=== PATIENT | female | born 1955 | race Caucasian/White ===

== ENCOUNTER 2018-12-06 19:20 | Emergency (ER) | payer MEDICARE ==
[~2018-12-06] VITALS: Ht 170.2 cm; Wt 68.2 kg
[2018-12-06 19:34] VITALS: TEMP 98
[2018-12-06] MEDS ORDERED: NORCO 325 MG-51 TAB PO (22:35)
[2018-12-06 22:55] VITALS: BP 131/71; PULSE 74
== END 2018-12-06 22:55 | disposition home or self-care (01) ==
LOC: COL.ER 19:20
DX: S43.401A Unspecified sprain of right shoulder joint, initial encounter (principal); R40.2412 Glasgow coma scale score 13-15, at arrival to emergency department; W01.0XXA Fall on same level from slipping, tripping and stumbling without subsequent striking against object, initial encounter; Y92.009 Unspecified place in unspecified non-institutional (private) residence as the place of occurrence of the external cause
CPT/HCPCS: J2060; J3010